=== PATIENT | female | born 1955 | race Caucasian/White ===

== ENCOUNTER → 2024-03-25 10:45 | Outpatient (REF) | payer MEDICARE, SELFPAY | LOC: HWWDC 10:45 | PROVIDERS: ATTENDING PHYSICIAN Nurse Practitioner | DX: Z12.31 Encounter for screening mammogram for malignant neoplasm of breast (principal) | CPT/HCPCS: 77063; 77067 ==

== ENCOUNTER → 2024-07-28 13:28 | Outpatient (REF) | payer MEDICARE, SELFPAY | LOC: WDC 13:28 | PROVIDERS: ATTENDING PHYSICIAN Nurse Practitioner | DX: R92.333 Mammographic heterogeneous density, bilateral breasts (principal) | CPT/HCPCS: 76641 ==

== ENCOUNTER → 2025-04-10 13:42 | Outpatient (REF) | payer MEDICARE, SELFPAY | LOC: HWWDC 13:42 | DX: Z12.31 Encounter for screening mammogram for malignant neoplasm of breast (principal); M85.80 Other specified disorders of bone density and structure, unspecified site; M81.0 Age-related osteoporosis without current pathological fracture | CPT/HCPCS: 77063; 77067; 77080 ==